=== PATIENT | male | born 1955 | race Caucasian/White ===

== ENCOUNTER 2016-05-28 11:43 | Emergency (ER) | payer MEDICARE, MEDICAID ==
[2016-05-28] MEDS ORDERED: KETOROLAC 60 MG/2 ML VIAL IM ONE (15:16)
== END 2016-05-28 16:34 | disposition home or self-care (01) ==
LOC: ER 11:43
DX: M10.9 Gout, unspecified (principal); Z79.82 Long term (current) use of aspirin; Z79.899 Other long term (current) drug therapy
CPT/HCPCS: 36415; 80053; 84550; 85025; 85652; 96372